=== PATIENT | male | born 1940 | race Caucasian/White ===

== ENCOUNTER 2016-06-21 11:36 | Inpatient (IN) | payer OTHER ==
[~2016-06-21] VITALS: Ht 180.3 cm; Wt 71.3 kg
[2016-06-21] MEDS: DUONEB INH SCH (00:08)
[2016-06-21] MEDS ORDERED: Furosemide 40 MG/4 ML VIAL ONE (15:12)
[2016-06-21] MEDS ORDERED: Hydrocodone/APAP 10/325 MG TAB ONE (17:33)
[2016-06-21] MEDS ORDERED: METHYLPRED SOD SUCC 125 MG/2 ML VIAL ONE (17:33)
[2016-06-21] MEDS ORDERED: SALINE FLUSH 10 ML FLUSH PRN (18:05)
[2016-06-21] MEDS ORDERED: GUAIFEN/DM 10 ML UDC PO PRN (18:05)
[2016-06-21] MEDS ORDERED: Furosemide 40 MG/4 ML VIAL IV ONE (18:05)
[2016-06-21] MEDS ORDERED: ACETAMINOPHEN 325 MG TAB PO PRN (18:05)
[2016-06-21] MEDS ORDERED: LOPERAMIDE 2 MG CAPSULE PO PRN (18:05)
[2016-06-21] MEDS ORDERED: ALU/MAG/SIM 30 ML UDC PO PRN (18:05)
[2016-06-21] MEDS ORDERED: BISACODYL 10 MG SUPP RECTAL PRN (18:05)
[2016-06-21] MEDS ORDERED: FLEET ENEMA 132 ML BTL RECTAL PRN (18:05)
[2016-06-21] MEDS ORDERED: BISACODYL EC 5 MG TAB PO PRN (18:05)
[2016-06-21 20:05] VITALS: BP_SYST 120; BP_SYST 124; RESP 20; TEMP 98.1; Ht 180.3 cm; Wt 71.3 kg
[2016-06-21] MEDS: Atorvastatin 10 MG TAB PO SCH (22:06)
[2016-06-21] MEDS: DOXYCYCLINE 100 MG TAB PO SCH (22:06)
[2016-06-21] MEDS: PREDNISONE 10 MG TAB PO SCH (22:06)
[2016-06-21] MEDS: KCL CR 20 MEQ TAB PO SCH (22:08)
[2016-06-21] MEDS: SALINE FLUSH 10 ML FLUSH SCH (22:08)
[2016-06-21 23:11] VITALS: BP_SYST 149; RESP 18; TEMP 97.4
[2016-06-22] VITALS (7 sets, daily range): BP systolic 100–147; RESP 16–20; TEMP 97.6–98
[2016-06-22] MEDS: NEB-BROVANA 15 MCG/2 ML INH SCH ×3 (00:09→19:26)
[2016-06-22] MEDS: FAMOTIDINE 20 MG TAB PO SCH ×3 (01:49→20:53)
[2016-06-22] MEDS: Furosemide 40 MG TAB PO SCH ×4 (01:49→23:01)
[2016-06-22] MEDS: LEVOTHYROXINE 0.175 MG TAB PO SCH (05:01)
[2016-06-22] MEDS: SODIUM CHLORIDE 0.9% FLUSH BAG 500 ML IV SCH (06:00)
[2016-06-22] MEDS: DUONEB INH SCH ×5 (07:33→23:36)
[2016-06-22] MEDS: SALINE FLUSH 10 ML FLUSH SCH ×2 (08:23→20:53)
[2016-06-22] MEDS: ASPIRIN EC 81 MG TAB PO SCH (09:10)
[2016-06-22] MEDS: KCL CR 20 MEQ TAB PO SCH ×2 (09:10→20:53)
[2016-06-22] MEDS: DOXYCYCLINE 100 MG TAB PO SCH ×2 (09:10→20:53)
[2016-06-22] MEDS: ESCITALOPRAM 10 MG TAB PO SCH (09:10)
[2016-06-22] MEDS: ENOXAPARIN 40 MG/0.4 ML SYR SUBQ SCH (09:11)
[2016-06-22] MEDS: ALFUZOSIN 10 MG PO SCH (09:11)
[2016-06-22] MEDS: ONDANSETRON 4 MG VIAL IV PRN (09:12)
[2016-06-22] MEDS ORDERED: POTASSIUM PHOSPHATE 30 MMOL in SODIUM CHLORIDE 0.9% 250 ML IV ONE (09:15)
[2016-06-22] MEDS: MAG HYDROX 30 ML UDC PO PRN (09:21)
[2016-06-22] MEDS: PREDNISONE 10 MG TAB PO SCH (10:20)
[2016-06-22] MEDS ORDERED: LORAZEPAM 0.5 MG TAB PO PRN (11:10)
[2016-06-22] MEDS: NICOTINE 21 MG/24 HR TRANSDERM SCH (18:11)
[2016-06-22] MEDS: Atorvastatin 10 MG TAB PO SCH (20:53)
[2016-06-23 03:17] VITALS: BP_SYST 112; RESP 18; TEMP 97.7
[2016-06-23] MEDS: SODIUM CHLORIDE 0.9% FLUSH BAG 500 ML IV SCH (03:19)
[2016-06-23] MEDS: LEVOTHYROXINE 0.175 MG TAB PO SCH (06:13)
[2016-06-23] MEDS: NEB-BROVANA 15 MCG/2 ML INH SCH ×2 (06:50→19:10)
[2016-06-23] MEDS: DUONEB INH SCH ×7 (06:50→23:10)
[2016-06-23] MEDS ORDERED: MISSING DOSE XX ONE ×2 (06:55→09:40)
[2016-06-23 07:50] VITALS: BP_SYST 124; RESP 20; TEMP 97.8
[2016-06-23] MEDS: SALINE FLUSH 10 ML FLUSH SCH ×2 (08:00→20:48)
[2016-06-23] MEDS: MAG HYDROX 30 ML UDC PO PRN (08:38)
[2016-06-23] MEDS: Furosemide 40 MG TAB PO SCH ×2 (08:38→20:49)
[2016-06-23] MEDS: ASPIRIN EC 81 MG TAB PO SCH (08:38)
[2016-06-23] MEDS: KCL CR 20 MEQ TAB PO SCH ×2 (08:38→20:49)
[2016-06-23] MEDS: ESCITALOPRAM 10 MG TAB PO SCH (08:39)
[2016-06-23] MEDS: DOXYCYCLINE 100 MG TAB PO SCH ×2 (08:39→20:48)
[2016-06-23] MEDS: ALFUZOSIN 10 MG PO SCH (08:39)
[2016-06-23] MEDS: PREDNISONE 10 MG TAB PO SCH (08:39)
[2016-06-23] MEDS: ENOXAPARIN 40 MG/0.4 ML SYR SUBQ SCH (08:40)
[2016-06-23] MEDS: NICOTINE 21 MG/24 HR TRANSDERM SCH (08:41)
[2016-06-23] MEDS: FAMOTIDINE 20 MG TAB PO SCH ×2 (10:40→20:48)
[2016-06-23] MEDS ORDERED: Carvedilol 3.125 MG TAB PO SCH (11:50)
[2016-06-23 16:30] VITALS: BP_SYST 144; RESP 20; TEMP 97.9
[2016-06-23 19:52] VITALS: BP_SYST 123; RESP 18; TEMP 97.6
[2016-06-23] MEDS: Carvedilol 6.25 MG TAB PO SCH (20:49)
[2016-06-23] MEDS: Atorvastatin 10 MG TAB PO SCH (20:49)
[2016-06-24 02:30] VITALS: BP_SYST 135; RESP 20; TEMP 97.5
[2016-06-24] MEDS: SODIUM CHLORIDE 0.9% FLUSH BAG 500 ML IV SCH (05:38)
[2016-06-24] MEDS: LEVOTHYROXINE 0.175 MG TAB PO SCH (06:02)
[2016-06-24] MEDS: MAG HYDROX 30 ML UDC PO PRN (06:07)
[2016-06-24] MEDS: NEB-BROVANA 15 MCG/2 ML INH SCH (06:17)
[2016-06-24] MEDS: DUONEB INH SCH ×3 (06:17→14:34)
[2016-06-24 07:39] VITALS: BP_SYST 126; RESP 20; TEMP 97.8
[2016-06-24] MEDS: ASPIRIN EC 81 MG TAB PO SCH (08:37)
[2016-06-24] MEDS: SALINE FLUSH 10 ML FLUSH SCH (08:37)
[2016-06-24] MEDS: Carvedilol 6.25 MG TAB PO SCH (08:37)
[2016-06-24] MEDS: Furosemide 40 MG TAB PO SCH (08:38)
[2016-06-24] MEDS: KCL CR 20 MEQ TAB PO SCH (08:38)
[2016-06-24] MEDS: PREDNISONE 10 MG TAB PO SCH (08:38)
[2016-06-24] MEDS: ESCITALOPRAM 10 MG TAB PO SCH (08:38)
[2016-06-24] MEDS: NICOTINE 21 MG/24 HR TRANSDERM SCH (08:39)
[2016-06-24] MEDS: ALFUZOSIN 10 MG PO SCH (08:39)
[2016-06-24] MEDS: ENOXAPARIN 40 MG/0.4 ML SYR SUBQ SCH (08:39)
[2016-06-24] MEDS: DOXYCYCLINE 100 MG TAB PO SCH (08:39)
[2016-06-24] MEDS: ONDANSETRON 4 MG VIAL IV PRN ×2 (08:40→13:44)
[2016-06-24] MEDS ORDERED: OXYCODONE 5 MG TAB PO ONE (09:10)
[2016-06-24] MEDS: FAMOTIDINE 20 MG TAB PO SCH (10:16)
[2016-06-24 11:56] VITALS: BP_SYST 129; RESP 20; TEMP 97.6
[2016-06-24 15:31] VITALS: BP_SYST 132; RESP 20; TEMP 98
[2016-06-24] MEDS ORDERED: MISSING DOSE XX ONE (15:45)
[2016-06-24 17:01] VITALS: BP_SYST 132; RESP 20; TEMP 98
[2016-06-24 17:03] VITALS: BP_SYST 132; RESP 20; TEMP 98
== END 2016-06-24 17:47 | disposition home health service (06) | DRG 291 ==
LOC: ER 11:36 → ENPENDDIS 18:21 → EMR 18:21 → 4NT 19:54
PROVIDERS: ADMIT Family Medicine; ATTEND Family Medicine
DX: I50.33 Acute on chronic diastolic (congestive) heart failure (principal); J96.21 Acute and chronic respiratory failure with hypoxia; D64.9 Anemia, unspecified; J44.1 Chronic obstructive pulmonary disease with (acute) exacerbation; I47.1 Supraventricular tachycardia; E03.9 Hypothyroidism, unspecified; Z87.891 Personal history of nicotine dependence; Z79.82 Long term (current) use of aspirin; I25.2 Old myocardial infarction; H91.93 Unspecified hearing loss, bilateral; E78.5 Hyperlipidemia, unspecified; F41.9 Anxiety disorder, unspecified; F32.9 Major depressive disorder, single episode, unspecified; N40.0 Benign prostatic hyperplasia without lower urinary tract symptoms; Z79.51 Long term (current) use of inhaled steroids
CPT/HCPCS: 36600; 71010; 80048; 80053; 82553; 82607; 82746; 82803; 82947; 83735; 83880; 84100; 84439; 84443; 84484; 85025; 85610; 85730; 93005; 93306; 94640; 96374; 96375; 99223; 99233; 99239